=== PATIENT | male | born 1975 | race American Indian/Alaskan Native ===

== ENCOUNTER 2021-04-20 10:20 | Emergency (ER) | payer SELFPAY ==
[2021-04-20] MEDS ORDERED: oxyCODONE /ACETAMINOPHEN 5-325MG TAB PO ONE (14:29)
--- NOTE | 2021-04-20 15:12 | XRay Report ---
CHEST 2 VIEWS INDICATION / CLINICAL INFORMATION: pleuritic CP. COMPARISON: None available. FINDINGS: SUPPORT DEVICES: None. HEART / MEDIASTINUM: No significant abnormality. LUNGS / PLEURA: No significant pulmonary or pleural abnormality. No pneumothorax. ADDITIONAL FINDINGS: No significant additional findings. IMPRESSION: 1. No acute findings. Signer Name: Marcelo Crooks MD Signed: 04/20/2021 3:08 PM Workstation Name: [id number]
[2021-04-20 15:17] LABS: Basophils % (Auto) 0.6 % (0.0-1.8); Eosinophils # (Auto) 0.1 K/mm3 (0.0-0.4); Eosinophils % (Auto) 0.8 % (0.0-4.3); Hematocrit 47.3 % (35.5-45.6); Lymphocytes # (Auto) 1.6 K/mm3 (1.2-5.4); Lymphocytes % (Auto) 23.6 % (13.4-35.0); Mean Corpuscular HGB Conc 34 % (32-34); Mean Corpuscular Volume 87 fl (84-94); Monocytes # (Auto) 0.7 K/mm3 (0.0-0.8); Monocytes % (Auto) 9.7 % (0.0-7.3); Platelet Count 230 K/mm3 (140-440); Red Blood Count 5.41 M/mm3 (3.65-5.03); Red Cell Distribution Width 15.2 % (13.2-15.2)
--- NOTE | 2021-04-20 15:34 | Emergency Department Report ---
ED General Adult HPI - General Chief complaint: Extremity Injury, Upper Stated complaint: UPPER SHOULDER PAIN (L) Time Seen by Provider: 04/20/21 14:25 Source: patient Mode of arrival: Ambulatory Limitations: No Limitations - History of Present Illness Initial comments: Patient is a 45-year-old male who presents emergency room complaints of left upper back pain behind the left shoulder that began 2 days ago. He states that the pain radiates around to his chest. He states that his pain is worse with taking a deep breath and with movement. He states he is also had a cough for 2 days. He denies any fever, nausea, vomiting, diarrhea, shortness of breath, hemoptysis, leg swelling. He denies any recent travel recent surgery. No past medical history. No allergies to medications. - Related Data Previous Rx's Medication Instructions Recorded Last Taken Type Albuterol Sulfate [Proventil Hfa] 1 puff IH TID PRN #1 hfa.aer.ad 04/20/21 Unknown Rx Benzonatate [Tessalon Perles] 100 mg PO Q8HR PRN #12 capsule 04/20/21 Unknown Rx Naproxen [EC-Naprosyn] 500 mg PO BID PRN #14 tablet. 04/20/21 Unknown Rx Prednisone [predniSONE 10 mg 10 mg PO .TAPER #1 tab.ds.pk 04/20/21 Unknown Rx (6-Day Pack, 21 Tabs)] methOCARBAMOL [Robaxin TAB] 500 mg PO BID PRN #20 tab 04/20/21 Unknown Rx Allergies Allergy/AdvReac Type Severity Reaction Status Date / Time No Known Allergies Allergy Unverified 04/20/21 11:22 ED Review of Systems ROS: Stated complaint: UPPER SHOULDER PAIN (L) Other details as noted in HPI Comment: All other systems reviewed and negative ED Past Medical Hx - Past Medical History Previous Medical History?: No - Surgical History Past Surgical History?: No - Medications Home Medications: Home Medications Medication Instructions Recorded Confirmed Last Taken Type Albuterol Sulfate [Proventil Hfa] 1 puff IH TID PRN #1 hfa.aer.ad 04/20/21 Unknown Rx Benzonatate [Tessalon Perles] 100 mg PO Q8HR PRN #12 capsule 04/20/21 Unknown Rx Naproxen [EC-Naprosyn] 500 mg PO BID PRN #14 tablet. 04/20/21 Unknown Rx Prednisone [predniSONE 10 mg 10 mg PO .TAPER #1 tab.ds.pk 04/20/21 Unknown Rx (6-Day Pack, 21 Tabs)] methOCARBAMOL [Robaxin TAB] 500 mg PO BID PRN #20 tab 04/20/21 Unknown Rx ED Physical Exam - General Limitations: No Limitations General appearance: alert, in no apparent distress - Head Head exam: Present: atraumatic, normocephalic - Eye Eye exam: Present: normal appearance - ENT ENT exam: Present: mucous membranes moist - Respiratory Respiratory exam: Present: normal lung sounds bilaterally, rhonchi (bilaterally bases). Absent: respiratory distress, wheezes, rales, stridor, chest wall tenderness, accessory muscle use, decreased breath sounds, prolonged expiratory - Cardiovascular Cardiovascular Exam: Present: regular rate, normal rhythm, normal heart sounds. Absent: systolic murmur, diastolic murmur, rubs, gallop - Back Exam Back exam: Present: normal inspection, full ROM, paraspinal tenderness (left sided T-spine paraspinal muscular ttp, no midline C-spine, T-spine or L-spine ttp, no step offs, no deformities). Absent: vertebral tenderness - Neurological Exam Neurological exam: Present: alert, oriented X3 - Psychiatric Psychiatric exam: Present: normal affect, normal mood - Skin Skin exam: Present: warm, dry, intact ED Course Vital Signs 04/20/21 04/20/21 11:24 16:25 Temperature 98.2 F Pulse Rate 57 L 49 L Respiratory 18 16 Rate Blood Pressure 130/80 Blood Pressure 143/100 [Left] O2 Sat by Pulse 98 97 Oximetry ED Medical Decision Making - Lab Data Result diagrams: 04/20/21 14:39 04/20/21 14:39 Vital Signs 04/20/21 04/20/21 11:24 16:25 Temperature 98.2 F Pulse Rate 57 L 49 L Respiratory 18 16 Rate Blood Pressure 130/80 Blood Pressure 143/100 [Left] O2 Sat by Pulse 98 97 Oximetry - EKG Data EKG shows normal: sinus rhythm, axis, intervals, ST-T waves Rate: bradycardia - EKG Data 04/20/21 15:48 PAC no STEMI - Radiology Data Radiology results: report reviewed Ordering Physician: KOTA MONTERO Date of Service: 07/29/21 Procedure(s): XR chest routine 2V Accession Number(s): [id number] cc: KOTA MONTERO Fluoro Time In Minutes: CHEST 2 VIEWS INDICATION / CLINICAL INFORMATION: pleuritic CP. COMPARISON: None available. FINDINGS: SUPPORT DEVICES: None. HEART / MEDIASTINUM: No significant abnormality. LUNGS / PLEURA: No significant pulmonary or pleural abnormality. No pneumothorax. ADDITIONAL FINDINGS: No significant additional findings. IMPRESSION: 1. No acute findings. Signer Name: Marcelo Crooks MD Signed: 04/20/2021 3:08 PM Workstation Name: [id number] Transcribed By: GUERDA Dictated By: LALITO CROOKS MD Electronically Authenticated By: LALITO CROOKS MD Signed Date/Time: 04/20/211507 DD/ 06 TD/TT: Print - Medical Decision Making Patient is a 45-year-old male who presents emergency room complaints of left up per back pain behind the left shoulder that began 2 days ago. He states that the pain radiates around to his chest. He states that his pain is worse with taking a deep breath and with movement. He states he is also had a cough for 2 days. He denies any fever, nausea, vomiting, diarrhea, shortness of breath, hemoptysis, leg swelling. He denies any recent travel recent surgery. No past medical history. No allergies to medications. Vitals are stable. On exam:left sided T-spine paraspinal muscular ttp, no midline C-spine, T-spine or L-spine ttp, no step offs, no deformities. EKG with sinus bradycardia, otherwise stable. Patient denies any lightheadedness, dizziness, syncope, will have patient follow-up with outpatient cardiology given bradycardia. He denies any chest pain he states that the upper back pain just wraps around the side to his left lateral ribs. Labs are normal. D-dimer is negative. Troponin is negative. Chest x-ray: 1. No acute findings. Patient does have some rhonchi on exam, symptoms could be related to bronchitis and pleuritis. He has no clinical signs of bacterial pneumonia. Discussed case with Dr. Schroeder, ER attending who agrees that this is likely pleurisy. Patient given prescription for medications. Advised patient Please take medication as prescribed. Follow- up with your primary care doctor. 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 Return to emergency room for any new or worse symptoms. Critical care attestation.: If time is entered above; I have spent that time in minutes in the direct care of this critically ill patient, excluding procedure time. ED Disposition Clinical Impression: Bronchitis, Pleuritis, Bradycardia Disposition: DC-01 TO HOME OR SELFCARE Is pt being admited?: No Does the pt Need Aspirin: No Condition: Stable Instructions: Bradycardia, Adult, Pleurisy, [id number], Acute Bronchitis, Adult, Chronic Bronchitis (ED) Additional Instructions: Please take medication as prescribed. Follow-up with your primary care doctor. 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 Return to emergency room for any new or worse symptoms. Prescriptions: Naproxen [EC-Naprosyn] 500 mg PO BID PRN #14 tablet.dr PRN Reason: pain Prednisone [predniSONE 10 mg (6-Day Pack, 21 Tabs)] 10 mg PO .TAPER #1 tab.ds.pk Albuterol Sulfate [Proventil Hfa] 1 puff IH TID PRN #1 hfa.aer.ad PRN Reason: shortness of breath/wheezing methOCARBAMOL [Robaxin TAB] 500 mg PO BID PRN #20 tab PRN Reason: muscle spasm/pain Benzonatate [Tessalon Perles] 100 mg PO Q8HR PRN #12 capsule PRN Reason: cough Referrals: PRIMARY CARE, [Primary Care Provider] - 2-3 Days HELENA KELLEY MD [Staff Physician] - 2-3 Days Forms: Work/School Release Form(ED) Time of Disposition: 15:49 Print Language: JAPANESE
[2021-04-20 15:42] LABS: Alanine Aminotransferase 26 units/L (7-56); Albumin 4.3 g/dL (3.9-5); BUN/Creatinine Ratio 8; Blood Urea Nitrogen 7 mg/dL (9-20); Calcium 9.2 mg/dL (8.4-10.2); Hemolysis Index 22
[2021-04-20 16:26] VITALS: BP 143/100
--- NOTE | 2021-04-21 17:50 | Electrocardiograph Report ---
[facility] Test Date: 2021-04-20 Test Time: 14:45:48 Pat Name: ELDER NUNEZ Department: Room: Gender: M Supervisor Cell Operation: KEEGAN : 1975 Requested By: SAMAN LEDEZMA Order Number: [id number] Reading MD: Sean Morris Measurements Intervals [place] Rate: 47 P: 58 ND: 132 QRS: 23 QRSD: 87 T: 14 QT: 417 QTc: 369 Interpretive Statements Sinus bradycardia Atrial premature complex No previous ECG available for comparison Electronically Signed On 04-21-2021 17:50:36 EDT by Sean Morris
== END 2021-04-20 16:29 | disposition home or self-care (01) ==
LOC: ED 10:20
DX: J40 Bronchitis, not specified as acute or chronic (principal); R09.1 Pleurisy; R00.1 Bradycardia, unspecified
CPT/HCPCS: 36415; 71046; 80053; 84484; 85025; 85379; 93005; 99283